=== PATIENT | female | born 1975 | race Two or more races ===

== ENCOUNTER 2016-11-10 21:13 | Emergency (ER) | payer OTHER ==
[~2016-11-10] VITALS: Ht 170.2 cm; Wt 99.8 kg
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
== END 2016-11-10 22:57 | disposition home or self-care (01) ==
LOC: CED 21:13
DX: S09.90XA Unspecified injury of head, initial encounter (principal); S46.912A Strain of unspecified muscle, fascia and tendon at shoulder and upper arm level, left arm, initial encounter; S50.02XA Contusion of left elbow, initial encounter; I10 Essential (primary) hypertension; F17.200 Nicotine dependence, unspecified, uncomplicated; W01.0XXA Fall on same level from slipping, tripping and stumbling without subsequent striking against object, initial encounter; Y92.69 Other specified industrial and construction area as the place of occurrence of the external cause; Y99.0 Civilian activity done for income or pay
CPT/HCPCS: 73030; 73080; 99283